=== PATIENT | female | born 1960 | race Caucasian/White ===

== ENCOUNTER 2024-01-02 11:38 | Emergency (ER) | payer OTHER, SELFPAY ==
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
== END 2024-01-02 16:06 | disposition home or self-care (01) ==
LOC: EMR 11:38
PROVIDERS: EMERGENCY PHYSICIAN Emergency Medicine; FAMILY PHYSICIAN Physician Assistant Medical
DX: S20.219A Contusion of unspecified front wall of thorax, initial encounter (principal); Y92.410 Unspecified street and highway as the place of occurrence of the external cause; G35 Multiple sclerosis
CPT/HCPCS: 99283; 71046; 71120; 93005

== ENCOUNTER → 2024-10-07 09:44 | Outpatient (REF) | payer BC, SELFPAY | LOC: MRI 09:44 | PROVIDERS: ATTENDING PHYSICIAN Electrodiagnostic Medicine; FAMILY PHYSICIAN Physician Assistant Medical | DX: G35 Multiple sclerosis (principal) | CPT/HCPCS: 70553; 72156; A9575 ==

== ENCOUNTER → 2024-10-10 08:42 | Outpatient (REF) | payer BC, SELFPAY | LOC: MRI 3T 08:42 | PROVIDERS: ATTENDING PHYSICIAN Electrodiagnostic Medicine; FAMILY PHYSICIAN Physician Assistant Medical | DX: G35 Multiple sclerosis (principal) | CPT/HCPCS: 72157; A9575 ==

== ENCOUNTER → 2025-08-21 07:34 | Outpatient (REF) | payer MEDICARE, BC, SELFPAY | LOC: MRI 07:34 | PROVIDERS: ATTENDING PHYSICIAN Nurse Practitioner; FAMILY PHYSICIAN Physician Assistant Medical | DX: G35.D Multiple sclerosis, unspecified (principal) | CPT/HCPCS: 70553; 72156; A9575 ==

== ENCOUNTER → 2025-08-28 07:33 | Outpatient (REF) | payer MEDICARE, BC, SELFPAY | LOC: MRI 07:33 | PROVIDERS: ATTENDING PHYSICIAN Nurse Practitioner; FAMILY PHYSICIAN Physician Assistant Medical | DX: G35.D Multiple sclerosis, unspecified (principal) | CPT/HCPCS: 72157; A9575 ==